=== PATIENT | female | born 1970 ===

== ENCOUNTER 2022-05-02 18:12 | Emergency (ER) | payer OTHER, SELFPAY ==
--- NOTE | 2022-05-02 18:39 | PC.NURSE ---
pt asking how long the wait is and if the urgent care did xrays. I told this patient that the urgent care closes soon and that they would send her back here. pt asking for names of other hospitals. this rn told patient I did not feel comfortable giving out that information and that we would be more than happy to take care of her and that wait times are high all over. pt states she will come back later. pt out of ed with steady gait .
== END 2022-05-02 18:39 | disposition left against medical advice (07) ==
LOC: ANHED 19:01
DX: Z53.21 Procedure and treatment not carried out due to patient leaving prior to being seen by health care provider (principal)
CPT/HCPCS: 99199